=== PATIENT | male | born 1990 | race Caucasian/White ===

== ENCOUNTER 2018-04-24 12:56 | Emergency (ER) | payer OTHER ==
[2018-04-24] MEDS ORDERED: LIDOCAINE HCL 1% 20 ML VIAL ONE (13:05)
[2018-04-24] MEDS ORDERED: LEVOFLOXACIN 500 MG TABLET ONE (13:34)
== END 2018-04-24 13:42 | disposition home or self-care (01) ==
LOC: EDH 12:56
DX: S81.012A Laceration without foreign body, left knee, initial encounter (principal); X58.XXXA Exposure to other specified factors, initial encounter; Y93.89 Activity, other specified; Y92.89 Other specified places as the place of occurrence of the external cause; Y99.8 Other external cause status
CPT/HCPCS: 12032

== ENCOUNTER 2019-08-03 20:03 | Emergency (ER) | payer OTHER | END 2019-08-03 21:18 | disposition home or self-care (01) | LOC: EDH 20:03 | DX: S82.892A Other fracture of left lower leg, initial encounter for closed fracture (principal); W18.39XA Other fall on same level, initial encounter; Y93.89 Activity, other specified; Y92.89 Other specified places as the place of occurrence of the external cause; Y99.8 Other external cause status | CPT/HCPCS: 29515; 73610 ==